=== PATIENT | male | born 1960 | race Caucasian/White ===

== ENCOUNTER → 2019-06-22 | Outpatient (CLI) | payer OTHER ==
--- NOTE | 2019-06-23 08:57 | US ---
EXAM DESCRIPTION: Abdomen,Complete: Ultrasound. CLINICAL HISTORY: 59 years MaleN/V/UNSPECIFIED COMPARISON: None Available. TECHNIQUE: Transabdominal scanning: grayscale and Doppler modes.. Limitations to the study due to patient large body habitus. FINDINGS: Gallbladder: Normal size with no intraluminal stones or sludge. Liver wall thickness 2.8 mm. No fluid. Nontender with transducer pressure. Common bile duct: 5.7 mm normal caliber. Liver: Increased echogenicity and increased density in the liver with poor visualization of the posterior liver and posterior capsule. Long axis right lobe 17.4 cm. No focal lesions. Physiologic vascular flow with normal caliber of the ducts. Hypoechoic lesion abutting the hepatic wall of the gallbladder measuring 2.0 x 1.8 x 0.8 cm. Nonvascular. Smooth capsule with no ascites. Pancreas: Limited visualization but normal echogenicity. Pancreatic duct not seen.. Abdominal aorta: Normal caliber from the proximal segment to the distal bifurcation. IVC: visualized; normal caliber. Spleen normal echogenicity; long axis measurement is 11.4 cm. Right kidney: 12.5 cm long axis. Normal cortical thickness and echogenicity. No echogenic stones or hydronephrosis. Left kidney: 11.4 cm long axis with normal cortical thickness and echogenicity. No echogenic stones or hydronephrosis. IMPRESSION: 1. Limited study due to patient large body habitus. 2. Steatosis of the liver and mildly enlarged. Small lesion abutting the gallbladder is most likely focal fatty sparing. Consider 3 month ultrasound follow-up. Physiologic vascularity and normal size and ducts. Smooth capsule and no ascites. Limited visualization of the pancreas but no abnormalities. 3. Normal ultrasound of the gallbladder. Normal caliber of the common bile duct. 4. Spleen and bilateral kidneys are unremarkable. Electronically signed by: Demetrio Vyas MD 06/23/2019 8:55 AM CASE THERAPIST
== END ==
LOC: US 14:52
PROVIDERS: ATTEND Family Medicine
DX: R11.2 Nausea with vomiting, unspecified (principal); K76.0 Fatty (change of) liver, not elsewhere classified; R19.00 Intra-abdominal and pelvic swelling, mass and lump, unspecified site